=== PATIENT | female | born 1985 ===

== ENCOUNTER 2017-12-13 06:00 | Outpatient (CLI) | payer OTHER ==
[~2017-12-13 06:00] MED LIST: DOCUSATE SODIU100 MG PO; NAPROXEN SODIU550 MG PO; PRENATE ADVANCE PO
== END 2017-12-13 06:08 | disposition home or self-care (01) ==
LOC: LAB 06:00 → CIR.AMB 12-20 13:59 → EDSTATUS 12-20 14:45 → CIR.AMB 12-20 16:36
DX: Z01.810 Encounter for preprocedural cardiovascular examination (principal)